=== PATIENT | female | born 1975 | race Asian ===

== ENCOUNTER 2022-04-28 12:31 | Emergency (ER) | payer MEDICAID ==
[~2022-04-28] VITALS: Ht 157.5 cm; Wt 55.0 kg
[2022-04-28 12:41] VITALS: BP 104/65
== END 2022-04-28 14:11 | disposition home or self-care (01) ==
LOC: ER 12:32
DX: M25.562 Pain in left knee (principal)
CPT/HCPCS: 73564; 99283